=== PATIENT | female | born 1995 | race Caucasian/White ===

== ENCOUNTER 2018-06-30 18:06 | Emergency (ER) | payer BC ==
--- NOTE | 2018-06-30 18:22 | ER Document Report ---
ED General - General Chief Complaint: Lower Abdominal Pain Stated Complaint: ABDOMINAL PAIN Time Seen by Provider: 06/30/18 18:22 Notes: Patient is a 23-year-old female that presents to the emergency department for chief complaint of pelvic cramping. Patient states has been having approximately 5 days of lower pelvic cramping, that felt like period cramps, but was persistent, she is concerned she may be , so she took a urine test today and it was positive. Her first day of her last menstrual period was May 28. She denies having any vaginal bleeding, discharge, dysuria or hematuria. Denies any fevers, chills, night sweats. She currently rates the pain as a 3 out of 10, as a bilateral and midline cramping in her pelvis. She denies any other complaints at this time, she is . Denies prior history of PID. She was on oral contraceptive pills, but was not taking them on a regular basis. Past Medical History: Denies chronic medical conditions Past Surgical History: Skin lesion removal Social History: Denies tobacco use, admits to rare alcohol use, denies illicit drug use. Family History: Reviewed and noncontributory for presenting illness Allergies: Reviewed, see documented allergy list. REVIEW OF SYSTEMS: Other than noted above, the 12 point review of systems was reviewed with the patient and were negative, all pertinent findings are included in the HPI. PHYSICAL EXAMINATION: Vital signs reviewed, nursing noted reviewed. GENERAL: Well-appearing, well-nourished and in no acute distress. HEAD: Atraumatic, normocephalic. EYES: Eyes appear normal, extraocular movements intact, sclera anicteric, conjunctiva are normal. ENT: nares patent, oropharynx clear without exudates. Moist mucous membranes. NECK: Normal range of motion, supple without lymphadenopathy LUNGS: Breath sounds clear to auscultation bilaterally and equal. No wheezes rales or rhonchi. HEART: Regular rate and rhythm without murmurs ABDOMEN: Soft, mild lower abdominal tenderness to palpation, normoactive bowel sounds. No rebound, guarding, or rigidity. No masses appreciated. EXTREMITIES: Nontender, good range of motion, no pitting or edema. NEUROLOGICAL: No focal neurological deficits. Moves all extremities spontaneously Motor and sensory grossly intact on exam. PSYCH: Normal mood, normal affect. SKIN: Warm, Dry, normal turgor, no rashes or lesions noted on exposed skin TRAVEL OUTSIDE OF THE [place] IN LAST 30 DAYS: No - Related Data Allergies/Adverse Reactions: No Known Allergies Allergy (Unverified 06/30/18 18:11) Past Medical History - Social History Smoking Status: Never Smoker Family History: Reviewed & Not Pertinent Physical Exam - Vital signs Vitals: Temp Pulse Resp BP Pulse Ox 98.9 F 94 14 129/72 H 99 06/30/18 18:13 06/30/18 18:13 06/30/18 18:13 06/30/18 18:13 06/30/18 18:13 Course - Re-evaluation Re-evalutation: Patient seen and examined vital signs reviewed. Laboratory data and imaging were ordered as appropriate for the patient's presenting symptoms and complaint, with consideration of any critical or life threatening conditions that may be associated with their obtained history and exam as noted above. Patient was treated with Tylenol and Keflex Results were reviewed when available and demonstrated UA that had large amount of leukocyte esterase, will treat for urinary tract infection, OB ultrasound, did not reveal intrauterine or ectopic , hCG was appropriate level for 4 weeks gravid, recommended follow-up with outpatient [facility], and monitoring for symptoms of worsening pain, vomiting, fever, and if she experiencing the symptoms to return to the department sooner. Otherwise she can follow-up with [facility], for serial hCG testing. Evaluation was most consistent with pelvic cramping, , UTI Results were discussed with the patient at this point, after careful consideration I feel that that patient can be discharged from the emergency department, the patient was educated treatments and reasons to return to the emergency department based on their presumed diagnosis as noted above, they were advised to followup with a primary care physician in 2-3 days. Patient was agreeable to plan of care. *Note is created using voice recognition software and may contain spelling, syntax or grammatical errors. Laboratory 06/30/18 06/30/18 18:50 19:00 Beta HCG, Quant 88.01 H Total Beta HCG POSITIVE Urine Color YELLOW Urine Appearance CLOUDY Urine pH 5.0 Ur Specific [place] 1.018 Urine Protein NEGATIVE Urine Glucose (UA) NEGATIVE Urine Ketones NEGATIVE Urine Blood NEGATIVE Urine Nitrite NEGATIVE Urine Bilirubin NEGATIVE Urine Urobilinogen NEGATIVE Ur Leukocyte Esterase LARGE H Urine WBC (Auto) 7 Urine RBC (Auto) 7 Squamous Epi Cells Auto 19 Urine Mucus (Auto) RARE Urine Ascorbic Acid NEGATIVE Obstetrics Ultrasound 06/30/18 18:42 IMPRESSION: NO VISUALIZED INTRA- OR EXTRAUTERINE . ECTOPIC CANNOT BE EXCLUDED. FOLLOW-UP ULTRASOUND AND SERIAL BHCG LEVELS STRONGLY RECOMMENDED TO ACCURATELY ASSESS STATUS. - Vital Signs Vital signs: Temp Pulse Resp BP Pulse Ox 98.8 F 88 16 112/63 98 06/30/18 21:10 06/30/18 21:10 06/30/18 21:10 06/30/18 21:10 06/30/18 21:10 - Laboratory Laboratory results interpreted by me: 06/30/18 06/30/18 18:50 19:00 Beta HCG, Quant 88.01 H Ur Leukocyte Esterase LARGE H Discharge - Discharge Clinical Impression: Abdominal cramping affecting UTI (urinary tract infection) Qualifiers: Urinary tract infection type: site unspecified Hematuria presence: without hematuria Qualified Code(s): N39.0 - Urinary tract infection, site not specified Condition: Stable Disposition: HOME, SELF-CARE Instructions: Pelvic Pain in ([facility]), Urinary Tract Infection ([facility]) Additional Instructions: Please follow-up with [facility], call for an appointment tomorrow, for repeat hCG testing, take the antibiotic as prescribed, for the next 5 days, if you experience worsening pain, not improved with Tylenol, vomiting, fever, or any other symptom that may concern you such as vaginal bleeding, please return to the emergency department immediately to be reevaluated. You need to avoid alcohol, cigarettes, anti-inflammatory medicine such as Motrin , ibuprofen, Advil, Aleve, or naproxen. For pain you can take Tylenol, if you have nausea, it is advised now that he can take Unisom with vitamin B6 if needed every 6 hours. You can also start taking a vitamin. Prescriptions: Cephalexin Monohydrate [Keflex 500 mg Capsule] 500 mg PO BID 5 Days #10 capsule Referrals: [facility] [Provider Group] - Follow up tomorrow
[2018-06-30] MEDS ORDERED: ACETAMINOPHEN 325 MG TABLET PO ONE (18:47)
[2018-06-30 19:13] LABS: APPEARANCE,URINE CLOUDY; BILIRUBIN,URINE NEGATIVE (NEGATIVE); COLOR,URINE YELLOW; GLUCOSE, URINE NEGATIVE (NEGATIVE); KETONES,URINE NEGATIVE (NEGATIVE); LEUKOCYTE ESTERASE,URINE LARGE (NEGATIVE); NITRITE,URINE NEGATIVE (NEGATIVE); PROTEIN,URINE NEGATIVE (NEGATIVE); URINE SPECIFIC GRAVITY 1.018; UROBILINOGEN,URINE NEGATIVE mg/dL (<2.0)
--- NOTE | 2018-06-30 20:17 | RADIOLOGY REPORT (SQ) ---
EXAM DESCRIPTION: U/S OB TRANSVAGINAL W/O DOP COMPLETED DATE/TIME: 06/30/2018 8:07 pm REASON FOR STUDY: pelvic cramping, est 4 wks gravid COMPARISON: None. TECHNIQUE: Transvaginal static and realtime grayscale images acquired of the pelvis. Additional florian cted spectral and color Doppler images recorded. All images stored on PACs. CLINICAL AGE: 4 week 4 day. BHC,801. LIMITATIONS: None. FINDINGS: UTERUS: No visualized intrauterine . Possible 1.3 cm fibroid. RIGHT ADNEXA: Normal ovary with normal vascular flow. No adnexal free fluid. 2 cm cyst. LEFT ADNEXA: Normal ovary with normal vascular flow. No adnexal free fluid. No adnexal masses. FREE FLUID: None. OTHER: No other significant finding. IMPRESSION: NO VISUALIZED INTRA- OR EXTRAUTERINE . ECTOPIC CANNOT BE EXCLUDED. FOLLOW-UP ULTRASOUND AND SERIAL BHCG LEVELS STRONGLY RECOMMENDED TO ACCURATELY ASSESS STATU S. TECHNICAL DOCUMENTATION: JOB ID: [id number] [employer]- All Rights Reserved Reading location - IP/workstation name: [email or web address]
[2018-06-30] MEDS ORDERED: CEPHALEXIN 500 MG CAPSULE PO ONE (20:25)
[2018-06-30 21:16] VITALS: BP 112/63
== END 2018-06-30 21:16 | disposition home or self-care (01) ==
LOC: ER 18:06
DX: O23.41 Unspecified infection of urinary tract in pregnancy, first trimester (principal); O26.891 Other specified pregnancy related conditions, first trimester; R10.30 Lower abdominal pain, unspecified; R10.2 Pelvic and perineal pain; Z3A.00 Weeks of gestation of pregnancy not specified
CPT/HCPCS: 36415; 76817; 81001; 84702; 87086; 99284

== ENCOUNTER 2018-12-19 10:48 | Outpatient (CLI) | payer BC | END 2018-12-19 12:18 | disposition home or self-care (01) | LOC: LC 10:48 | PROVIDERS: ATTEND Obstetrics & Gynecology | PROC: 4A1HXCZ Monitoring of Products of Conception, Cardiac Rate, External Approach (ICD-10-PCS; principal; 2018-12-19) | DX: O36.8130 Decreased fetal movements, third trimester, not applicable or unspecified (principal); Z3A.28 28 weeks gestation of pregnancy ==

== ENCOUNTER 2019-01-27 11:25 | Outpatient (CLI) | payer BC ==
[2019-01-27 12:09] LABS: APPEARANCE,URINE SLIGHTLY-CLOUDY; BILIRUBIN,URINE NEGATIVE (NEGATIVE); COLOR,URINE YELLOW; GLUCOSE, URINE NEGATIVE (NEGATIVE); KETONES,URINE NEGATIVE (NEGATIVE); LEUKOCYTE ESTERASE,URINE MODERATE (NEGATIVE); NITRITE,URINE NEGATIVE (NEGATIVE); PROTEIN,URINE NEGATIVE (NEGATIVE); URINE SPECIFIC GRAVITY 1.021; UROBILINOGEN,URINE NEGATIVE mg/dL (<2.0)
--- NOTE | 2019-01-27 12:11 | Non Stress Test Report ---
Non Stress Test Datetime Report Generated by CPN: 01/27/2019 12:11 DEMOGRAPHIC EGA NST: 34.0 INDICATION Indication for Study: Ordered by Provider Indication for Study (NST) Other: cx, vag bleeding VITAL SIGNS Temperature - NST: 98.4 Pulse - NST: 93 RESP - NST: 16 NBPSYS NST: 109 NBPDIA NST: 77 MONITORING Monitor Explained: Monitor Explained Time on Monitor: 01/27/2019 11:40 Time off Monitor: 01/27/2019 12:08 NST Duration: 28 NST INTERVENTIONS Physician Notified NST: Veronica Younger MD BABY A: [id number] BABY A Movement : Present Contraction Frequency : x2 FHR Baseline : 140 Accelerations : 15X15 Decelerations : None Variability : Moderate 6-25bpm NST Review: Meets Criteria for Reactive NST NST Review and Verified By : Peg Torres RN NST Results: Reactive NST REPORT Report Trigger: Send Report
[2019-01-27 12:18] LABS: URINE AMPHETAMINES SCREEN NEGATIVE; URINE BARBITURATES SCREEN NEGATIVE; URINE BENZODIAZEPINES SCREEN NEGATIVE; URINE COCAINE SCREEN NEGATIVE; URINE MARIJUANA (THC) SCREEN NEGATIVE; URINE METHADONE SCREEN NEGATIVE; URINE PHENCYCLIDINE SCREEN NEGATIVE
== END 2019-01-27 12:24 | disposition home or self-care (01) ==
LOC: LC 11:25
PROVIDERS: ATTEND Obstetrics & Gynecology
PROC: 4A1HXCZ Monitoring of Products of Conception, Cardiac Rate, External Approach (ICD-10-PCS; principal; 2019-01-27)
DX: O46.93 Antepartum hemorrhage, unspecified, third trimester (principal); Z3A.34 34 weeks gestation of pregnancy
CPT/HCPCS: 59025; 80307; 81001